=== PATIENT | female | born 1970 | race Caucasian/White ===

== ENCOUNTER → 2016-08-20 | Outpatient (CLI) | payer BC ==
[~2016-08-20] MED LIST: FLUT250M9; METH18TA5; ZYRTEC; [UNRECOGNIZED DRUG - OTHER]
== END | disposition home or self-care (01) ==
LOC: Rad HDHVI 14:04
PROVIDERS: ATTEND Internal Medicine Cardiovascular Disease
DX: I34.2 Nonrheumatic mitral (valve) stenosis (principal)
CPT/HCPCS: 93306

== ENCOUNTER → 2016-08-24 | Outpatient (CLI) | payer BC ==
[2016-08-24 10:15] VITALS: BP 138/90
[2016-08-24 10:45] VITALS: BP 125/84
== END | disposition home or self-care (01) ==
LOC: Rad HDHVI 09:51
PROVIDERS: ATTEND Internal Medicine Cardiovascular Disease
DX: I34.2 Nonrheumatic mitral (valve) stenosis (principal); Z87.828 Personal history of other (healed) physical injury and trauma; J45.909 Unspecified asthma, uncomplicated; M25.519 Pain in unspecified shoulder; M48.02 Spinal stenosis, cervical region
CPT/HCPCS: 70496; 70498; G0463

== ENCOUNTER 2017-08-01 08:09 | Emergency (ER) | payer BC ==
[~2017-08-01] VITALS: Ht 172.7 cm; Wt 86.2 kg
[2017-08-01 08:47] VITALS: BP 130/84
== END 2017-08-01 12:42 | disposition left against medical advice (07) ==
LOC: ER 08:09
DX: K46.9 Unspecified abdominal hernia without obstruction or gangrene (principal); Z53.21 Procedure and treatment not carried out due to patient leaving prior to being seen by health care provider

== ENCOUNTER 2018-01-03 07:14 | Inpatient (IN) | payer BC ==
[~2018-01-03] VITALS: Ht 175.3 cm; Wt 88.6 kg
[2018-01-03 07:56] LABS: Basophils # (auto) 0.1 uL; Basophils % (auto) 1.2 % (0.0-2.0); Eosinophils # (auto) 0.1 uL; Eosinophils % (auto) 2.3 % (0.0-7.0); Hematocrit 42.3 % (36.0-46.0); Hemoglobin 14.6 g/dL (12.2-16.2); Lymphocytes # (auto) 1.4 uL; Lymphocytes % (auto) 21.7 % (10.0-50.0); Mean Corpuscular Hemoglobin 32.6 pg (28.0-32.0); Mean Corpuscular Hgb Conc. 34.4 g/dL (32.0-36.0); Mean Corpuscular Volume 94.7 fL (80.0-100.0); Monocytes # (auto) 0.5 uL; Monocytes % (auto) 7.4 % (0.0-12.0); Neutrophils # (auto) 4.2 uL; Neutrophils % (auto) 67.4 % (37.0-80.0); Platelet Count (auto) 354 10^3/uL (140-450); Red Blood Cells 4.47 10^6/uL (4.0-5.20); Red Cell Distribution Width 13.7 % (11.8-14.3); White Blood Cell 6.3 10^3/uL (4.4-10.8)
[2018-01-03 08:15] LABS: Alanine Aminotransferase 21 U/L (13-56); Anion Gap 9 (5-15); Aspartate Aminotransferase 16 U/L (15-37); BUN/Creatinine Ratio 13.3; Blood Urea Nitrogen 11 mg/dL (7-18); Calcium 9.2 mg/dL (8.5-10.1); Carbon Dioxide 25 mmol/L (21-32); Chloride 104 mmol/L (98-107); GFR African American 95 mL/min; GFR Non-African American 78 mL/min; Glucose 109 mg/dL (74-106); Potassium 4.1 mmol/L (3.5-5.1); Sodium 138 mmol/L (136-145)
[2018-01-03 08:32] LABS: Alkaline Phosphatase 48 U/L (45-117); Bilirubin, Total 0.5 mg/dL (0.2-1.0); Total Protein 7.9 g/dL (6.4-8.2)
[2018-01-03] MEDS ORDERED: ACETAMINOPHEN 325 MG TAB PO ONE (09:30)
[2018-01-03] MEDS: SODIUM CHLORIDE 0.9% 1,000 ML IV SCH (10:28)
[2018-01-03] MEDS ORDERED: MORPHINE SULFATE 4 MG/ML SYR/VIAL IV PRN ×2 (10:30)
[2018-01-03] MEDS ORDERED: HYDROcodone-ACET 5/325MG TAB PO PRN (10:30)
[2018-01-03] MEDS ORDERED: TEMAZEPAM 15 MG CAP PO PRN (10:30)
[2018-01-03] MEDS ORDERED: NITROGLYCERIN 0.4 MG SL TAB SL PRN (10:30)
[2018-01-03] MEDS ORDERED: DOCUSATE SOD 100 MG CAP PO PRN (10:30)
[2018-01-03] MEDS ORDERED: ACETAMINOPHEN 325 MG TAB PO PRN (10:30)
[2018-01-03] MEDS ORDERED: cefTRIAXone 1GM/10ml IVPUSH 10 ML IV ONE (10:30)
[2018-01-03] MEDS ORDERED: ONDANSETRON HCL 4 MG/2 ML VIAL IV PRN (10:30)
[2018-01-03 11:04] LABS: INR 0.92 (0.9-1.15); Prothrombin Time 9.9 sec (9.27-12.13)
[2018-01-03] MEDS: metroNIDAZOLE 500MG/100ML 100 ML IV SCH ×2 (14:57→21:17)
[2018-01-03 15:38] LABS: Urine Pregnacy Test Negative (Negative)
[2018-01-03 15:50] LABS: Alcohol, Urine < 3.0 mg/dL (0-5); Amphetamine Screen, Urine NEGATIVE (NEGATIVE); Barbiturate Scree,Urine NEGATIVE (NEGATIVE); Benzodiazephine Screen, Urine NEGATIVE (NEGATIVE); Cannabinoid Screen, Urine NEGATIVE (NEGATIVE); Cocaine Screen, Urine NEGATIVE (NEGATIVE); Opiate Scree,Urine NEGATIVE (NEGATIVE); Phencyclidine Screen, Urine NEGATIVE (NEGATIVE)
[2018-01-03 16:00] LABS: Urine Bacteria MOD /hpf (None Seen); Urine Blood Negative /uL (Negative); Urine WBC 4 /hpf (0 - 5)
[2018-01-03] MEDS: ASCORBIC ACID 500 MG TAB PO SCH (21:26)
[2018-01-03] MEDS: FAMOTIDINE 20 MG TAB PO SCH (21:26)
[2018-01-03 22:00] VITALS: BP 119/63
[2018-01-04] VITALS (7 sets, daily range): BP systolic 110–124; BP diastolic 54–76
[2018-01-04] MEDS: ALBUTEROL SULF 2.5 MG/0.5ML(0.5%) NEB SOLN NEB SCH ×4 (01:23→18:20)
[2018-01-04] MEDS: SODIUM CHLORIDE 0.9% 1,000 ML IV SCH ×2 (03:08→23:20)
[2018-01-04] MEDS ORDERED: ADVAIR INH PRN (05:30)
[2018-01-04] MEDS: metroNIDAZOLE 500MG/100ML 100 ML IV SCH ×3 (05:36→20:55)
[2018-01-04 05:56] LABS: Basophils # (auto) 0 uL; Basophils % (auto) 0.8 % (0.0-2.0); Eosinophils # (auto) 0.2 uL; Eosinophils % (auto) 2.7 % (0.0-7.0); Hematocrit 39.6 % (36.0-46.0); Hemoglobin 13.8 g/dL (12.2-16.2); Lymphocytes # (auto) 1.6 uL; Mean Corpuscular Hemoglobin 33.3 pg (28.0-32.0); Mean Corpuscular Hgb Conc. 34.9 g/dL (32.0-36.0); Mean Corpuscular Volume 95.4 fL (80.0-100.0); Monocytes # (auto) 0.5 uL; Monocytes % (auto) 9.2 % (0.0-12.0); Neutrophils # (auto) 3.5 uL; Neutrophils % (auto) 59.3 % (37.0-80.0); Nucleated Red Blood Cells % 0.1 %; Platelet Count (auto) 286 10^3/uL (140-450); Red Blood Cells 4.15 10^6/uL (4.0-5.20); Red Cell Distribution Width 13.4 % (11.8-14.3); White Blood Cell 5.9 10^3/uL (4.4-10.8)
[2018-01-04 06:09] LABS: Calcium 8.4 mg/dL (8.5-10.1)
[2018-01-04 06:16] LABS: Albumin 3.3 g/dL (3.4-5.0); BUN/Creatinine Ratio 14.8; Bilirubin, Total 0.6 mg/dL (0.2-1.0); Total Protein 6.7 g/dL (6.4-8.2)
[2018-01-04] MEDS: FAMOTIDINE 20 MG TAB PO SCH ×3 (09:49→20:59)
[2018-01-04] MEDS: ASCORBIC ACID 500 MG TAB PO SCH ×2 (09:49→20:59)
[2018-01-04] MEDS: MULTIPLE VITAMIN TAB PO SCH (09:49)
[2018-01-04] MEDS: cefTRIAXone 1GM/10ml IVPUSH 10 ML IV SCH (09:49)
[2018-01-04] MEDS: BUDESONIDE (INHALATION) 0.5 MG/2 ML NEB NEB SCH ×2 (12:19→18:20)
[2018-01-04] MEDS ORDERED: diphenhdrAMINE HCL 25 MG CAP PO ONE (22:00)
[2018-01-05] MEDS ORDERED: diphenhdrAMINE HCL 25 MG CAP PO ONE (00:30)
[2018-01-05 05:00] VITALS: BP 123/69
[2018-01-05] MEDS: BUDESONIDE (INHALATION) 0.5 MG/2 ML NEB NEB SCH ×2 (06:05→19:04)
[2018-01-05] MEDS: ALBUTEROL SULF 2.5 MG/0.5ML(0.5%) NEB SOLN NEB SCH ×4 (06:05→23:58)
[2018-01-05 06:09] LABS: Basophils # (auto) 0 uL; Basophils % (auto) 0.7 % (0.0-2.0); Eosinophils # (auto) 0.2 uL; Eosinophils % (auto) 3.1 % (0.0-7.0); Hematocrit 39.5 % (36.0-46.0); Hemoglobin 13.6 g/dL (12.2-16.2); Lymphocytes # (auto) 1.5 uL; Lymphocytes % (auto) 25.4 % (10.0-50.0); Mean Corpuscular Hemoglobin 32.8 pg (28.0-32.0); Mean Corpuscular Hgb Conc. 34.5 g/dL (32.0-36.0); Mean Corpuscular Volume 95.2 fL (80.0-100.0); Monocytes # (auto) 0.5 uL; Monocytes % (auto) 8.3 % (0.0-12.0); Neutrophils # (auto) 3.8 uL; Neutrophils % (auto) 62.5 % (37.0-80.0); Nucleated Red Blood Cells % 0.1 %; Platelet Count (auto) 307 10^3/uL (140-450); Red Blood Cells 4.15 10^6/uL (4.0-5.20); Red Cell Distribution Width 13.2 % (11.8-14.3)
[2018-01-05 06:11] LABS: Potassium 4.7 mmol/L (3.5-5.1)
[2018-01-05 06:15] LABS: Albumin 3.4 g/dL (3.4-5.0); BUN/Creatinine Ratio 19.4; Calcium 8.5 mg/dL (8.5-10.1)
[2018-01-05 06:17] LABS: Bilirubin, Total 0.4 mg/dL (0.2-1.0); Total Protein 6.9 g/dL (6.4-8.2)
[2018-01-05] MEDS: metroNIDAZOLE 500MG/100ML 100 ML IV SCH ×3 (06:32→22:24)
[2018-01-05] MEDS: SODIUM CHLORIDE 0.9% 1,000 ML IV SCH (06:35)
[2018-01-05 08:33] VITALS: BP 128/74
[2018-01-05] MEDS: ASCORBIC ACID 500 MG TAB PO SCH ×2 (11:20→22:23)
[2018-01-05] MEDS: LORATADINE 10 MG TAB PO SCH (11:20)
[2018-01-05] MEDS: MULTIPLE VITAMIN TAB PO SCH (11:20)
[2018-01-05] MEDS: cefTRIAXone 1GM/10ml IVPUSH 10 ML IV SCH (11:20)
[2018-01-05] MEDS: FAMOTIDINE 20 MG TAB PO SCH ×2 (11:20→22:23)
[2018-01-05 12:46] VITALS: BP 142/88
[2018-01-05 17:18] VITALS: BP 124/77
[2018-01-05 21:38] VITALS: BP 109/67
[2018-01-06 05:26] VITALS: BP 103/75
[2018-01-06 05:59] LABS: Basophils # (auto) 0.1 uL; Eosinophils # (auto) 0.2 uL; Hematocrit 39.1 % (36.0-46.0); Hemoglobin 13.7 g/dL (12.2-16.2); Lymphocytes # (auto) 1.5 uL; Lymphocytes % (auto) 25.3 % (10.0-50.0); Mean Corpuscular Hemoglobin 33.2 pg (28.0-32.0); Mean Corpuscular Hgb Conc. 34.9 g/dL (32.0-36.0); Mean Corpuscular Volume 95.1 fL (80.0-100.0); Monocytes # (auto) 0.5 uL; Monocytes % (auto) 8.7 % (0.0-12.0); Neutrophils # (auto) 3.7 uL; Nucleated Red Blood Cells % 0.1 %; Platelet Count (auto) 298 10^3/uL (140-450); Red Blood Cells 4.11 10^6/uL (4.0-5.20); Red Cell Distribution Width 13.3 % (11.8-14.3)
[2018-01-06] MEDS: SODIUM CHLORIDE 0.9% 1,000 ML IV SCH (06:03)
[2018-01-06] MEDS: metroNIDAZOLE 500MG/100ML 100 ML IV SCH (06:04)
[2018-01-06] MEDS: ALBUTEROL SULF 2.5 MG/0.5ML(0.5%) NEB SOLN NEB SCH ×2 (06:10→11:33)
[2018-01-06] MEDS: BUDESONIDE (INHALATION) 0.5 MG/2 ML NEB NEB SCH (06:11)
[2018-01-06 06:13] LABS: Albumin 3.4 g/dL (3.4-5.0); BUN/Creatinine Ratio 17.6; Calcium 8.6 mg/dL (8.5-10.1); Potassium 4.2 mmol/L (3.5-5.1)
[2018-01-06 06:16] LABS: Bilirubin, Total 0.4 mg/dL (0.2-1.0); Total Protein 6.7 g/dL (6.4-8.2)
[2018-01-06 08:00] VITALS: BP 114/66
[2018-01-06 09:16] VITALS: BP 114/66
[2018-01-06] MEDS: cefTRIAXone 1GM/10ml IVPUSH 10 ML IV SCH (09:32)
[2018-01-06] MEDS: LORATADINE 10 MG TAB PO SCH (09:33)
[2018-01-06] MEDS: FAMOTIDINE 20 MG TAB PO SCH (09:33)
[2018-01-06] MEDS: MULTIPLE VITAMIN TAB PO SCH (09:33)
[2018-01-06] MEDS: ASCORBIC ACID 500 MG TAB PO SCH (09:33)
[2018-01-06 11:30] VITALS: BP 114/66
[2018-01-06 13:00] VITALS: BP 118/74
== END 2018-01-06 14:42 | disposition home or self-care (01) | DRG 392 ==
LOC: ER 07:14 → TELE 07:15 → TELE-WESTW 18:34
PROVIDERS: ADMIT Internal Medicine; ATTEND Internal Medicine
DX: R10.9 Unspecified abdominal pain (principal); D73.4 Cyst of spleen; I05.2 Rheumatic mitral stenosis with insufficiency; R00.2 Palpitations; J45.909 Unspecified asthma, uncomplicated; K21.9 Gastro-esophageal reflux disease without esophagitis; N18.2 Chronic kidney disease, stage 2 (mild); K57.90 Diverticulosis of intestine, part unspecified, without perforation or abscess without bleeding; Z82.49 Family history of ischemic heart disease and other diseases of the circulatory system; Z90.710 Acquired absence of both cervix and uterus; Z83.3 Family history of diabetes mellitus; Z88.5 Allergy status to narcotic agent; Z88.0 Allergy status to penicillin; Z88.8 Allergy status to other drugs, medicaments and biological substances; Z90.49 Acquired absence of other specified parts of digestive tract
CPT/HCPCS: 36415; 74176; 76705; 80053; 80307; 81001; 81025; 83605; 84484; 85025; 85610; 87040; 87086; 93005; 93306; 94640; 96374; J3490

== ENCOUNTER 2018-10-13 16:36 | Emergency (ER) | payer BC ==
[~2018-10-13] VITALS: Ht 172.7 cm; Wt 83.9 kg
[2018-10-13 17:00] VITALS: BP 125/76
[2018-10-13] MEDS ORDERED: ALBUTEROL SULF 2.5 MG/0.5ML(0.5%) NEB SOLN NEB ONE (17:15)
[2018-10-13] MEDS ORDERED: methylPREDNISolone SOD SUCC 125 MG/2 ML VL IM ONE (17:15)
[2018-10-13] MEDS ORDERED: IPRATROPIUM BROM 0.5 MG/2.5ML INH SOL NEB ONE (17:15)
== END 2018-10-13 18:08 | disposition home or self-care (01) ==
LOC: ER 16:46
DX: J45.909 Unspecified asthma, uncomplicated (principal); Z90.710 Acquired absence of both cervix and uterus; Z90.89 Acquired absence of other organs
CPT/HCPCS: 71046; 93005; 94640; 96372; 99283; J2930; J7611; J7644

== ENCOUNTER 2019-07-04 14:31 | Inpatient (IN) | payer BC ==
[~2019-07-04] VITALS: Ht 172.7 cm; Wt 101.6 kg
[2019-07-04 17:40] LABS: Basophils # (auto) 0 uL; Basophils % (auto) 0.5 % (0.0-2.0); Eosinophils # (auto) 0.1 uL; Eosinophils % (auto) 0.6 % (0.0-7.0); Hematocrit 41.7 % (36.0-46.0); Hemoglobin 14.5 g/dL (12.2-16.2); Lymphocytes # (auto) 1.2 uL; Lymphocytes % (auto) 12.6 % (10.0-50.0); Mean Corpuscular Hgb Conc. 34.8 g/dL (32.0-36.0); Mean Corpuscular Volume 97.7 fL (80.0-100.0); Monocytes # (auto) 0.7 uL; Monocytes % (auto) 7.1 % (0.0-12.0); Neutrophils # (auto) 7.5 uL; Neutrophils % (auto) 79.2 % (37.0-80.0); Platelet Count (auto) 309 10^3/uL (140-450); Red Blood Cells 4.27 10^6/uL (4.0-5.20); Red Cell Distribution Width 12.5 % (11.8-14.3); White Blood Cell 9.5 10^3/uL (4.4-10.8)
[2019-07-04 17:55] LABS: Albumin 4.1 g/dL (3.4-5.0); Calcium 9.5 mg/dL (8.5-10.1)
[2019-07-04 18:00] LABS: Total Protein 7.8 g/dL (6.4-8.2)
[2019-07-04] MEDS ORDERED: SODIUM CHLORIDE 0.9% 1,000 ML IVB ONE (20:34)
[2019-07-04] MEDS ORDERED: ONDANSETRON HCL 4 MG/2 ML VIAL IV ONE (20:45)
[2019-07-04] MEDS ORDERED: MORPHINE SULFATE 4 MG/ML SYR/VIAL IV ONE (20:45)
[2019-07-04] MEDS ORDERED: metroNIDAZOLE 500MG/100ML 100 ML IV ONE (20:45)
[2019-07-04] MEDS ORDERED: MORPHINE SULFATE 4 MG/ML SYR/VIAL IV PRN (23:00)
[2019-07-04] MEDS ORDERED: TEMAZEPAM 15 MG CAP PO PRN (23:00)
[2019-07-04] MEDS ORDERED: ONDANSETRON HCL 4 MG/2 ML VIAL IV PRN (23:00)
[2019-07-04] MEDS ORDERED: LEVOFLOXACIN 500MG 100 ML IV ONE (23:00)
[2019-07-04] MEDS ORDERED: NALBUPHINE HCL 10 MG/1ml INJECTION IV PRN (23:45)
[2019-07-05] VITALS (7 sets, daily range): BP systolic 102–139; BP diastolic 59–71
[2019-07-05] MEDS: metroNIDAZOLE 500MG/100ML 100 ML IV SCH ×4 (00:13→21:33)
[2019-07-05] MEDS ORDERED: ALBU1.257 (00:17)
[2019-07-05] MEDS ORDERED: FLUT115A (00:19)
[2019-07-05 00:39] LABS: Urine Bacteria FEW /hpf (None Seen); Urine Blood Negative /uL (Negative); Urine Specific Gravity 1.005 (1.001-1.035); Urine WBC 2 /hpf (0 - 5)
--- NOTE | 2019-07-05 01:09 | NUR ---
MS admit from ER EDNANAM admitted to tele/MS.. Patient oriented to Julia Marshall RN primary RN, unit, room, bed, and unit policies regarding patient care and visiting hours. Patient weighed by bedscale and encouraged to call if they need something. All questions and concerns addressed, patient verbalized understanding. Bed is in lowest locked position with bed rails up x2 and call light is within reach of the patient. Placed on 2 liters nasal cannula oxygen.
[2019-07-05] MEDS: LEVOFLOXACIN 500MG 100 ML IV SCH (02:43)
[2019-07-05] MEDS ORDERED: CETI10CA PO (03:37)
[2019-07-05] MEDS ORDERED: ASPI81CH49 PO (03:39)
--- NOTE | 2019-07-05 06:04 | NUR ---
IV removal IV DC'd with clean sterile technique, catheter fully intact. Pressure dressing applied to site with coband and gauze. Patient tolerated well.
--- NOTE | 2019-07-05 06:04 | NUR ---
IV insertion IV access obtained, via clean sterile technique by inserting 22 gauge catheter at right forearm after 1 attempt. IV secured properly. No trauma to site. Patient tolerated well.
--- NOTE | 2019-07-05 06:30 | NUR ---
CALLED PHARMACY: CALLED PHARMACY REGARDING NUBAIN MEDICATION FOR PAIN. PHARMACY STATED THAT IT WONT BE TILL WITHIN THE HOUR THEY WILL BE ABLE TO BRING UP MEDICATION. WILL NOTIFY DAY SHIFT NURSE.
--- NOTE | 2019-07-05 07:11 | NUR ---
Opening Shift Note Assumed care of patient, awake and alert. No S/S of distress/SOB or pain. Instructed on POC and to call for assist PRN, will continue to monitor for changes Q1hr and PRN. Bed set in lowest locked position with side rails up x 2 for safety.
[2019-07-05 07:33] LABS: Basophils # (auto) 0 uL; Basophils % (auto) 0.6 % (0.0-2.0); Eosinophils # (auto) 0.1 uL; Eosinophils % (auto) 1.2 % (0.0-7.0); Hematocrit 39.9 % (36.0-46.0); Hemoglobin 13.6 g/dL (12.2-16.2); Lymphocytes # (auto) 1.5 uL; Lymphocytes % (auto) 21.9 % (10.0-50.0); Mean Corpuscular Hemoglobin 33.9 pg (28.0-32.0); Mean Corpuscular Hgb Conc. 34.2 g/dL (32.0-36.0); Mean Corpuscular Volume 99.3 fL (80.0-100.0); Monocytes # (auto) 0.7 uL; Monocytes % (auto) 9.9 % (0.0-12.0); Neutrophils # (auto) 4.5 uL; Neutrophils % (auto) 66.4 % (37.0-80.0); Nucleated Red Blood Cells % 0.1 %; Platelet Count (auto) 268 10^3/uL (140-450); Red Blood Cells 4.02 10^6/uL (4.0-5.20); Red Cell Distribution Width 12.6 % (11.8-14.3); White Blood Cell 6.7 10^3/uL (4.4-10.8)
[2019-07-05 07:46] LABS: Calcium 8.8 mg/dL (8.5-10.1); Potassium 4.2 mmol/L (3.5-5.1)
[2019-07-05 07:48] LABS: BUN/Creatinine Ratio 9.7
--- NOTE | 2019-07-05 10:50 | NUR ---
MD at bedside Dr. Khadijah Neal, updated pt on POC. All questions answered.
[2019-07-05] MEDS: FAMOTIDINE 20 MG TAB PO SCH ×2 (10:55→21:33)
[2019-07-05] MEDS: ACETAMINOPHEN 325 MG TAB PO PRN ×2 (11:00→19:13)
[2019-07-05] MEDS ORDERED: KETOROLAC TROMETH 30 MG/ML 1ML VIAL IV ONE (16:00)
--- NOTE | 2019-07-05 16:00 | NUR ---
MD at bedside Dr. Lyon, updated pt on POC.
[2019-07-05] MEDS: SODIUM CHLORIDE 0.9% 1,000 ML IV SCH (18:45)
[2019-07-05] MEDS: LACTULOSE 20Gm/30ML SOLN PO PRN (18:55)
--- NOTE | 2019-07-05 19:16 | NUR ---
Endorsed care to NOC RN.
--- NOTE | 2019-07-05 19:30 | NUR ---
Opening Shift Note Report received from day shift RN. Assumed care of patient. Patient awake and A&Ox4. No S/S of distress/SOB noted. Patient complains of tolerable abdominal pain, 3/10 on a numerical scale. Will medicate patient as ordered. Bed locked in the lowest position with the side rails up x2 and the call light left within reach. Instructed on POC and to call for assist PRN, will continue to monitor for changes Q1hr and PRN.
[2019-07-06] MEDS: LEVOFLOXACIN 500MG 100 ML IV SCH (00:57)
[2019-07-06] MEDS: KETOROLAC TROMETH 30 MG/ML 1ML VIAL IV PRN ×3 (02:01→16:56)
[2019-07-06] MEDS: ALBUTEROL SULF 2.5 MG/0.5ML(0.5%) NEB SOLN NEB PRN ×2 (02:38→22:05)
[2019-07-06 03:53] VITALS: BP 101/61
[2019-07-06] MEDS: metroNIDAZOLE 500MG/100ML 100 ML IV SCH ×3 (05:15→21:37)
--- NOTE | 2019-07-06 07:17 | NUR ---
Opening Shift Note Assumed care of patient, awake and alert. No S/S of distress/SOB. Instructed on POC and to call for assist PRN, will continue to monitor for changes Q1hr and PRN. Bed set in lowest locked position for safety and call light is within reach.
[2019-07-06 08:00] VITALS: BP 111/69
[2019-07-06] MEDS: LACTULOSE 20Gm/30ML SOLN PO PRN ×3 (08:02→21:38)
[2019-07-06] MEDS: FAMOTIDINE 20 MG TAB PO SCH ×2 (10:03→21:38)
[2019-07-06] MEDS: SODIUM CHLORIDE 0.9% 1,000 ML IV SCH (10:40)
[2019-07-06 12:00] VITALS: BP 125/73
[2019-07-06 16:18] VITALS: BP 125/73
[2019-07-06 16:48] VITALS: BP 125/76
--- NOTE | 2019-07-06 19:35 | NUR ---
Opening Shift Note Report received from day shift RN. Assumed care of patient. Patient awake and A&Ox4. No S/S of distress/SOB noted. Patient complains of tolerable abdominal pain, 6/10 on a numerical scale. Will medicate patient as ordered. Bed locked in the lowest position with the side rails up x2 and the call light left within reach. Instructed on POC and to call for assist PRN, will continue to monitor for changes Q1hr and PRN.
[2019-07-06 22:00] VITALS: BP 120/84
[2019-07-07] MEDS: LEVOFLOXACIN 500MG 100 ML IV SCH (00:11)
[2019-07-07] MEDS: SODIUM CHLORIDE 0.9% 1,000 ML IV SCH ×2 (02:52→20:00)
[2019-07-07 05:00] VITALS: BP 108/72
[2019-07-07] MEDS: metroNIDAZOLE 500MG/100ML 100 ML IV SCH ×3 (05:48→22:18)
--- NOTE | 2019-07-07 07:40 | NUR ---
Opening Note Received report from material handler 2nd shift RN. Patient is awake, alert and oriented X4. No signs or symptoms of distress noted at this time. Patient denies pain at this time. Reviewed plan of care with patient, patient verbalized understanding. Bed in low and locked position, call light within reach. Will continue to monitor Q1 hour and PRN.
[2019-07-07 09:00] VITALS: BP 124/79
--- NOTE | 2019-07-07 09:00 | NUR ---
Respiratory note: NO PRN BREATHING TX NEEDED AT THIS TIME. WILL CONTINUE TO MONITOR PATIENT.
[2019-07-07] MEDS: FAMOTIDINE 20 MG TAB PO SCH ×2 (09:30→22:18)
--- NOTE | 2019-07-07 11:34 | NUR ---
Dr. Ha at bedside Discussing plan of care with patient. Will continue to monitor Q1 hour and PRN.
[2019-07-07 13:00] VITALS: BP 142/83
[2019-07-07] MEDS ORDERED: diphenhdrAMINE HCL 25 MG CAP PO PRN (14:15)
[2019-07-07 17:00] VITALS: BP 126/69
--- NOTE | 2019-07-07 19:25 | NUR ---
Closing Note Report given to overnight cashier RN. No signs or symptoms of distress noted at this time.
--- NOTE | 2019-07-07 19:56 | NUR ---
RT NOTE PRN ASSESSMENT DONE PRN NOT INDICATED AT THIS TIME. NO RESP DISTRESS NOTED.
--- NOTE | 2019-07-07 20:00 | NUR ---
Opening Shift Note Assumed care of patient, awake and alert. No S/S of distress/SOB or pain. Instructed on POC and to call for assist PRN, will continue to monitor for changes Q1hr and PRN. Family at bedside. Bed in low position and call light in reach.
[2019-07-07 22:00] VITALS: BP 124/79
[2019-07-08] MEDS: LEVOFLOXACIN 500MG 100 ML IV SCH (00:28)
--- NOTE | 2019-07-08 03:00 | NUR ---
Patient complained of abdominal gas. New order obtained from for [facility].
[2019-07-08] MEDS ORDERED: SIMETHICONE 80 MG CHEWABLE TABLET PO PRN (03:30)
[2019-07-08 05:00] VITALS: BP 125/74
[2019-07-08 05:56] LABS: Eosinophils # (auto) 0.2 uL; Eosinophils % (auto) 2.8 % (0.0-7.0); Hemoglobin 12.4 g/dL (12.2-16.2); Monocytes # (auto) 0.6 uL; Neutrophils # (auto) 3.6 uL; Red Cell Distribution Width 12.4 % (11.8-14.3)
[2019-07-08 06:05] LABS: Basophils # (auto) 0 uL; Basophils % (auto) 0.8 % (0.0-2.0); Hematocrit 35.4 % (36.0-46.0); Lymphocytes % (auto) 19.1 % (10.0-50.0); Mean Corpuscular Hemoglobin 34.3 pg (28.0-32.0); Mean Corpuscular Hgb Conc. 35.1 g/dL (32.0-36.0); Mean Corpuscular Volume 97.8 fL (80.0-100.0); Monocytes % (auto) 10.8 % (0.0-12.0); Neutrophils % (auto) 66.5 % (37.0-80.0); Platelet Count (auto) 249 10^3/uL (140-450); Red Blood Cells 3.62 10^6/uL (4.0-5.20); White Blood Cell 5.5 10^3/uL (4.4-10.8)
[2019-07-08 06:10] LABS: BUN/Creatinine Ratio 7.3; Calcium 8.3 mg/dL (8.5-10.1)
[2019-07-08] MEDS: metroNIDAZOLE 500MG/100ML 100 ML IV SCH (06:14)
[2019-07-08 08:53] VITALS: BP 122/81
[2019-07-08] MEDS: FAMOTIDINE 20 MG TAB PO SCH (09:51)
--- NOTE | 2019-07-08 12:41 | NUR ---
Respiratory note: PT ASSESSED FOR PRN MED NEB TX, NO TX DESIRED NOR INDICATED. NO DISTRESS NOTED, DENIES SOB. PT AND RN AWARE TO HAVE RT PAGED IF NEEDED. HR 63 RR 16 SPO2 97% ON RA, BREATH SOUNDS ARE CLEAR/DIMINISHED T/O.
[2019-07-08 12:48] VITALS: BP 136/83
--- NOTE | 2019-07-08 14:50 | NUR ---
DISCHARGE NOTE Discharge instructions given as ordered. Encourage to follow up with PMD as instructed. All questions and concerns addressed. Patient verbalized understanding. Medication reconciliation form completed and copy given to patient. IV removed with catheter intact, pressure dressing applied. Patient taken to vehicle via wheelchair with all personal belongings, accompanied by staff and family member. No distress noted at time of departure.
== END 2019-07-08 14:30 | disposition home or self-care (01) | DRG 392 ==
LOC: ER 14:31 → OVERFLOW 14:32 → WEST WING 23:45
PROVIDERS: ADMIT Nurse Practitioner; ATTEND Internal Medicine
DX: K57.32 Diverticulitis of large intestine without perforation or abscess without bleeding (principal); E66.9 Obesity, unspecified; E78.5 Hyperlipidemia, unspecified; J45.909 Unspecified asthma, uncomplicated; K58.9 Irritable bowel syndrome, unspecified; K59.00 Constipation, unspecified; Z80.0 Family history of malignant neoplasm of digestive organs; Z87.410 Personal history of cervical dysplasia; Z90.710 Acquired absence of both cervix and uterus; Z90.49 Acquired absence of other specified parts of digestive tract; Z88.0 Allergy status to penicillin; Z88.2 Allergy status to sulfonamides; Z88.8 Allergy status to other drugs, medicaments and biological substances; Z88.6 Allergy status to analgesic agent; Z91.040 Latex allergy status; Z68.34 Body mass index [BMI] 34.0-34.9, adult; Z79.899 Other long term (current) drug therapy
CPT/HCPCS: 36415; 74176; 80048; 80053; 81001; 83036; 83690; 85025; 94640; G0378; J1885; J1956; J2405; J3490

== ENCOUNTER 2020-04-06 20:32 | Emergency (ER) | payer BC ==
[~2020-04-06 20:32] MED LIST changes: +ALBU1.257; +ASPI81CH49 PO; +CETI10CA PO; +FLUT115A; -[UNRECOGNIZED DRUG - OTHER]
== END 2020-04-06 20:54 | disposition left against medical advice (07) ==
LOC: ER 20:32
DX: R10.9 Unspecified abdominal pain (principal); R11.0 Nausea; Z53.21 Procedure and treatment not carried out due to patient leaving prior to being seen by health care provider

== ENCOUNTER → 2020-04-07 | Emergency (ER) | payer BC ==
[~2020-04-07] VITALS: Ht 172.7 cm; Wt 90.7 kg
[2020-04-07 12:19] LABS: Basophils # (auto) 0 10 ^3/uL (0-0.2); Basophils % (auto) 0.9 % (0.0-2.0); Eosinophils # (auto) 0.1 10 ^3/uL (0-0.8); Eosinophils % (auto) 1.5 % (0.0-7.0); Hematocrit 42.3 % (36.0-46.0); Hemoglobin 14.4 g/dL (12.2-16.2); Lymphocytes # (auto) 1.6 10 ^3/uL (0.4-5.4); Lymphocytes % (auto) 30.8 % (10.0-50.0); Mean Corpuscular Hemoglobin 33.3 pg (28.0-32.0); Mean Corpuscular Hgb Conc. 34.2 g/dL (32.0-36.0); Mean Corpuscular Volume 97.4 fL (80.0-100.0); Monocytes # (auto) 0.5 10 ^3/uL (0-1.3); Monocytes % (auto) 8.8 % (0.0-12.0); Platelet Count (auto) 276 10^3/uL (140-450); Red Blood Cells 4.34 10^6/uL (4.0-5.20); Red Cell Distribution Width 12.8 % (11.8-14.3); White Blood Cell 5.3 10^3/uL (4.4-10.8)
[2020-04-07 12:37] LABS: Potassium 3.9 mmol/L (3.5-5.1)
[2020-04-07 12:41] LABS: Urine Bacteria MOD /hpf (None Seen); Urine Blood Negative /uL (Negative); Urine Specific Gravity 1.004 (1.001-1.035); Urine WBC 1 /hpf (0 - 5)
[2020-04-07 12:48] LABS: Albumin 4.1 g/dL (3.4-5.0); BUN/Creatinine Ratio 10.6; Bilirubin, Total 0.7 mg/dL (0.2-1.0); Calcium 9.1 mg/dL (8.5-10.1); Total Protein 7.6 g/dL (6.4-8.2)
[2020-04-07 19:34] VITALS: BP 140/74
== END | disposition home or self-care (01) ==
LOC: ER 11:11
DX: K59.00 Constipation, unspecified (principal); K57.90 Diverticulosis of intestine, part unspecified, without perforation or abscess without bleeding; R11.0 Nausea; E78.5 Hyperlipidemia, unspecified; Z90.49 Acquired absence of other specified parts of digestive tract; Z90.710 Acquired absence of both cervix and uterus
CPT/HCPCS: 36415; 74176; 80053; 81001; 83690; 85025

== ENCOUNTER 2020-09-20 21:07 | Inpatient (IN) | payer BC ==
[~2020-09-20] VITALS: Ht 172.7 cm; Wt 101.2 kg
[2020-09-20 22:18] LABS: Basophils # (auto) 0 10 ^3/uL (0-0.2); Lymphocytes # (auto) 1.2 10 ^3/uL (0.4-5.4); Lymphocytes % (auto) 11.3 % (10.0-50.0); Monocytes # (auto) 0.6 10 ^3/uL (0-1.3); Nucleated Red Blood Cells % 0.1 %
[2020-09-20 22:19] LABS: Basophils % (auto) 0.3 % (0.0-2.0); Eosinophils # (auto) 0 10 ^3/uL (0-0.8); Eosinophils % (auto) 0.4 % (0.0-7.0); Hematocrit 42.2 % (36.0-46.0); Hemoglobin 14.9 g/dL (12.2-16.2); Mean Corpuscular Hemoglobin 33.7 pg (28.0-32.0); Mean Corpuscular Hgb Conc. 35.3 g/dL (32.0-36.0); Mean Corpuscular Volume 95.4 fL (80.0-100.0); Monocytes % (auto) 5.1 % (0.0-12.0); Neutrophils # (auto) 9.1 10 ^3/uL (1.6-8.6); Neutrophils % (auto) 82.9 % (37.0-80.0); Platelet Count (auto) 355 10^3/uL (140-450); Red Blood Cells 4.43 10^6/uL (4.0-5.20); Red Cell Distribution Width 12.5 % (11.8-14.3); White Blood Cell 10.9 10^3/uL (4.4-10.8)
[2020-09-20 22:33] LABS: Albumin 4.5 g/dL (3.4-5.0); Calcium 9.8 mg/dL (8.5-10.1)
[2020-09-20 22:36] LABS: BUN/Creatinine Ratio 14.8; Bilirubin, Total 0.7 mg/dL (0.2-1.0); Total Protein 8.4 g/dL (6.4-8.2)
[2020-09-21] MEDS ORDERED: NITROGLYCERIN 0.4 MG SL TAB SL PRN (03:15)
[2020-09-21] MEDS ORDERED: ACETAMINOPHEN 325 MG TAB PO PRN (03:15)
[2020-09-21] MEDS ORDERED: ONDANSETRON HCL 4 MG/2 ML VIAL IV PRN (03:15)
[2020-09-21] MEDS: SODIUM CHLORIDE 0.9% 1,000 ML IV SCH ×2 (03:36→05:35)
[2020-09-21 03:57] LABS: Basophils # (auto) 0 10 ^3/uL (0-0.2); Basophils % (auto) 0.5 % (0.0-2.0); Eosinophils # (auto) 0.1 10 ^3/uL (0-0.8); Hematocrit 40.3 % (36.0-46.0); Hemoglobin 14.1 g/dL (12.2-16.2); Lymphocytes # (auto) 1.6 10 ^3/uL (0.4-5.4); Lymphocytes % (auto) 18.2 % (10.0-50.0); Mean Corpuscular Hemoglobin 33.6 pg (28.0-32.0); Mean Corpuscular Volume 95.9 fL (80.0-100.0); Monocytes # (auto) 0.6 10 ^3/uL (0-1.3); Monocytes % (auto) 6.8 % (0.0-12.0); Neutrophils # (auto) 6.4 10 ^3/uL (1.6-8.6); Neutrophils % (auto) 73.5 % (37.0-80.0); Platelet Count (auto) 319 10^3/uL (140-450); Red Blood Cells 4.21 10^6/uL (4.0-5.20); Red Cell Distribution Width 12.7 % (11.8-14.3); White Blood Cell 8.8 10^3/uL (4.4-10.8)
[2020-09-21 04:20] LABS: Albumin 4.1 g/dL (3.4-5.0); Calcium 8.9 mg/dL (8.5-10.1); Potassium 3.6 mmol/L (3.5-5.1)
[2020-09-21 04:23] LABS: BUN/Creatinine Ratio 15.7; Bilirubin, Total 0.6 mg/dL (0.2-1.0); Total Protein 7.7 g/dL (6.4-8.2)
[2020-09-21 04:51] VITALS: BP 137/69
[2020-09-21 05:44] VITALS: BP 137/69
[2020-09-21 07:54] VITALS: BP 116/69
[2020-09-21] MEDS: ENOXAPARIN SOD 40 MG/0.4 ML SYRINGE SC SCH (10:20)
[2020-09-21] MEDS: PANTOPRAZOLE 40 MG/10 ML VIAL INJ IV SCH (10:20)
[2020-09-21 10:47] LABS: Urine Bacteria NONE SEEN /hpf (None Seen); Urine Blood Negative /uL (Negative); Urine Mucus FEW (None Seen); Urine Specific Gravity 1.029 (1.001-1.035); Urine WBC 1 /hpf (0 - 5)
[2020-09-21] MEDS ORDERED: GASTROGRAFIN 120 ML SOL ONE (12:07)
[2020-09-21] MEDS: KETOROLAC TROMETH 30 MG/ML 1ML VIAL IV PRN ×2 (14:12→22:46)
[2020-09-21 16:00] VITALS: BP 124/79
[2020-09-21 22:00] VITALS: BP 129/74
[2020-09-22 05:00] VITALS: BP 126/66
[2020-09-22 07:07] LABS: Eosinophils # (auto) 0.2 10 ^3/uL (0-0.8); White Blood Cell 5.2 10^3/uL (4.4-10.8)
[2020-09-22 07:10] LABS: Basophils # (auto) 0.1 10 ^3/uL (0-0.2); Basophils % (auto) 1.1 % (0.0-2.0); Eosinophils % (auto) 3.3 % (0.0-7.0); Hematocrit 36.8 % (36.0-46.0); Hemoglobin 13.2 g/dL (12.2-16.2); Lymphocytes # (auto) 1.2 10 ^3/uL (0.4-5.4); Lymphocytes % (auto) 23.3 % (10.0-50.0); Mean Corpuscular Hemoglobin 34.7 pg (28.0-32.0); Mean Corpuscular Hgb Conc. 35.8 g/dL (32.0-36.0); Mean Corpuscular Volume 96.8 fL (80.0-100.0); Monocytes # (auto) 0.4 10 ^3/uL (0-1.3); Monocytes % (auto) 7.8 % (0.0-12.0); Neutrophils # (auto) 3.4 10 ^3/uL (1.6-8.6); Neutrophils % (auto) 64.5 % (37.0-80.0); Platelet Count (auto) 268 10^3/uL (140-450); Red Cell Distribution Width 12.7 % (11.8-14.3)
[2020-09-22 07:14] LABS: INR 1.03 (0.9-1.15)
[2020-09-22 07:21] LABS: Potassium 3.4 mmol/L (3.5-5.1)
[2020-09-22 07:24] LABS: Albumin 3.4 g/dL (3.4-5.0); BUN/Creatinine Ratio 19.4; Calcium 8.5 mg/dL (8.5-10.1)
[2020-09-22 07:27] LABS: Bilirubin, Total 0.6 mg/dL (0.2-1.0); Total Protein 6.5 g/dL (6.4-8.2)
[2020-09-22 07:54] VITALS: BP 128/77
[2020-09-22] MEDS ORDERED: diphenhdrAMINE HCL 25 MG CAP PO PRN (09:45)
[2020-09-22] MEDS: ENOXAPARIN SOD 40 MG/0.4 ML SYRINGE SC SCH (10:22)
[2020-09-22] MEDS: PANTOPRAZOLE 40 MG/10 ML VIAL INJ IV SCH (10:23)
[2020-09-22] MEDS: diphenhdrAMINE HCL 50 MG/1 ML VL IV PRN ×2 (10:32→22:04)
[2020-09-22] MEDS: SODIUM CHLORIDE 0.9% 1,000 ML IV SCH (12:06)
[2020-09-22] MEDS ORDERED: POTASSIUM CHLORIDE 20 MEQ, LIDOCAINE 1% (LOCAL ANESTH.) 2 ML in SODIUM CHL 0.9% 100 ML IV ONE (12:45)
[2020-09-22 16:00] VITALS: BP 119/65
[2020-09-22 22:00] VITALS: BP 125/73
[2020-09-23] MEDS: SODIUM CHLORIDE 0.9% 1,000 ML IV SCH ×2 (03:39→18:29)
[2020-09-23 05:00] VITALS: BP 104/54
[2020-09-23 07:27] LABS: Basophils # (auto) 0 10 ^3/uL (0-0.2); Basophils % (auto) 0.6 % (0.0-2.0); Eosinophils # (auto) 0.1 10 ^3/uL (0-0.8); Eosinophils % (auto) 2.3 % (0.0-7.0); Hemoglobin 12.9 g/dL (12.2-16.2); Lymphocytes % (auto) 16.6 % (10.0-50.0); Mean Corpuscular Hemoglobin 33.8 pg (28.0-32.0); Mean Corpuscular Hgb Conc. 34.9 g/dL (32.0-36.0); Mean Corpuscular Volume 96.9 fL (80.0-100.0); Monocytes # (auto) 0.4 10 ^3/uL (0-1.3); Monocytes % (auto) 7.5 % (0.0-12.0); Neutrophils # (auto) 4.3 10 ^3/uL (1.6-8.6); Platelet Count (auto) 263 10^3/uL (140-450); Red Blood Cells 3.82 10^6/uL (4.0-5.20); Red Cell Distribution Width 12.3 % (11.8-14.3)
[2020-09-23 07:40] LABS: Albumin 3.6 g/dL (3.4-5.0); Calcium 8.2 mg/dL (8.5-10.1); Potassium 3.7 mmol/L (3.5-5.1)
[2020-09-23 07:45] LABS: BUN/Creatinine Ratio 20.8; Bilirubin, Total 0.8 mg/dL (0.2-1.0)
[2020-09-23 08:00] VITALS: BP 112/65
[2020-09-23] MEDS: PANTOPRAZOLE 40 MG/10 ML VIAL INJ IV SCH (08:51)
[2020-09-23] MEDS: ENOXAPARIN SOD 40 MG/0.4 ML SYRINGE SC SCH (08:51)
[2020-09-23] MEDS: diphenhdrAMINE HCL 50 MG/1 ML VL IV PRN ×2 (12:22→21:35)
[2020-09-23 16:00] VITALS: BP 115/71
[2020-09-23 22:00] VITALS: BP 129/80
[2020-09-24 05:00] VITALS: BP 122/70
[2020-09-24 06:09] LABS: Basophils # (auto) 0 10 ^3/uL (0-0.2); Basophils % (auto) 0.8 % (0.0-2.0); Eosinophils # (auto) 0.2 10 ^3/uL (0-0.8); Eosinophils % (auto) 3.1 % (0.0-7.0); Hematocrit 35.3 % (36.0-46.0); Hemoglobin 12.4 g/dL (12.2-16.2); Lymphocytes # (auto) 1.2 10 ^3/uL (0.4-5.4); Lymphocytes % (auto) 22.1 % (10.0-50.0); Mean Corpuscular Hemoglobin 33.7 pg (28.0-32.0); Mean Corpuscular Hgb Conc. 35.2 g/dL (32.0-36.0); Mean Corpuscular Volume 95.6 fL (80.0-100.0); Monocytes # (auto) 0.5 10 ^3/uL (0-1.3); Monocytes % (auto) 9.2 % (0.0-12.0); Neutrophils # (auto) 3.4 10 ^3/uL (1.6-8.6); Neutrophils % (auto) 64.8 % (37.0-80.0); Nucleated Red Blood Cells % 0.1 %; Platelet Count (auto) 259 10^3/uL (140-450); Red Blood Cells 3.69 10^6/uL (4.0-5.20); Red Cell Distribution Width 12.5 % (11.8-14.3); White Blood Cell 5.2 10^3/uL (4.4-10.8)
[2020-09-24 06:34] LABS: BUN/Creatinine Ratio 9.5; Potassium 3.9 mmol/L (3.5-5.1)
[2020-09-24 08:33] VITALS: BP 114/68
[2020-09-24] MEDS: ENOXAPARIN SOD 40 MG/0.4 ML SYRINGE SC SCH (09:26)
[2020-09-24] MEDS: PANTOPRAZOLE 40 MG/10 ML VIAL INJ IV SCH (09:26)
[2020-09-24] MEDS: diphenhdrAMINE HCL 50 MG/1 ML VL IV PRN ×3 (09:27→22:50)
[2020-09-24 12:55] VITALS: BP 114/75
[2020-09-24] MEDS: SODIUM CHLORIDE 0.9% 1,000 ML IV SCH (15:12)
[2020-09-24 16:39] VITALS: BP 126/75
[2020-09-24 22:26] VITALS: BP 118/77
[2020-09-25 05:15] VITALS: BP 110/64
[2020-09-25 08:00] VITALS: BP 107/67
[2020-09-25] MEDS: PANTOPRAZOLE 40 MG/10 ML VIAL INJ IV SCH (09:52)
[2020-09-25] MEDS: SODIUM CHLORIDE 0.9% 1,000 ML IV SCH (09:53)
[2020-09-25] MEDS: ENOXAPARIN SOD 40 MG/0.4 ML SYRINGE SC SCH (09:53)
[2020-09-25] MEDS: diphenhdrAMINE HCL 50 MG/1 ML VL IV PRN (10:42)
[2020-09-25] MEDS ORDERED: LEVO500T31 PO (12:58)
== END 2020-09-25 17:50 | disposition home or self-care (01) | DRG 389 ==
LOC: ER 21:07 → TELE 09-21 03:23 → TELE-EAST 09-21 04:45
PROVIDERS: ADMIT Nurse Practitioner Family; ATTEND Internal Medicine
PROC: 0D9670Z Drainage of Stomach with Drainage Device, Via Natural or Artificial Opening (ICD-10-PCS; principal; 2020-09-21)
DX: K56.50 Intestinal adhesions [bands], unspecified as to partial versus complete obstruction (principal); R65.10 Systemic inflammatory response syndrome (SIRS) of non-infectious origin without acute organ dysfunction; E78.5 Hyperlipidemia, unspecified; J45.909 Unspecified asthma, uncomplicated; R73.9 Hyperglycemia, unspecified; D72.829 Elevated white blood cell count, unspecified; Z20.822 Contact with and (suspected) exposure to COVID-19; E87.6 Hypokalemia; Z88.5 Allergy status to narcotic agent; Z91.040 Latex allergy status; Z88.0 Allergy status to penicillin; Z88.2 Allergy status to sulfonamides; Z88.8 Allergy status to other drugs, medicaments and biological substances; Z90.710 Acquired absence of both cervix and uterus; Z90.49 Acquired absence of other specified parts of digestive tract; Z90.89 Acquired absence of other organs; Z80.9 Family history of malignant neoplasm, unspecified; Z79.899 Other long term (current) drug therapy
CPT/HCPCS: 36415; 71045; 74176; 74250; 80048; 80053; 81001; 82150; 83036; 83690; 84443; 85025; 85610; 87426; C9113; G0378; J1885; J2001

== ENCOUNTER 2021-01-27 15:57 | Emergency (ER) | payer BC ==
[~2021-01-27] VITALS: Ht 172.7 cm; Wt 72.6 kg
[~2021-01-27 15:57] MED LIST changes: +LEVO500T31 PO
[2021-01-27] MEDS ORDERED: ONDANSETRON HCL 4 MG/2 ML VIAL IV ONE (16:15)
[2021-01-27 16:39] LABS: Urine Bacteria FEW /hpf (None Seen); Urine Blood Negative /uL (Negative); Urine Specific Gravity 1.002 (1.001-1.035); Urine WBC <1 /hpf (0 - 5)
[2021-01-27 16:58] LABS: Basophils # (auto) 0.1 10 ^3/uL (0-0.2); Basophils % (auto) 0.9 % (0.0-2.0); Eosinophils # (auto) 0 10 ^3/uL (0-0.8); Eosinophils % (auto) 0.5 % (0.0-7.0); Hematocrit 39.2 % (36.0-46.0); Hemoglobin 13.6 g/dL (12.2-16.2); Lymphocytes # (auto) 1.2 10 ^3/uL (0.4-5.4); Lymphocytes % (auto) 19.3 % (10.0-50.0); Mean Corpuscular Hemoglobin 33.9 pg (28.0-32.0); Mean Corpuscular Hgb Conc. 34.8 g/dL (32.0-36.0); Mean Corpuscular Volume 97.6 fL (80.0-100.0); Monocytes # (auto) 0.5 10 ^3/uL (0-1.3); Monocytes % (auto) 8.1 % (0.0-12.0); Neutrophils # (auto) 4.5 10 ^3/uL (1.6-8.6); Neutrophils % (auto) 71.2 % (37.0-80.0); Nucleated Red Blood Cells % 0.1 %; Red Blood Cells 4.02 10^6/uL (4.0-5.20); Red Cell Distribution Width 12.8 % (11.8-14.3); White Blood Cell 6.2 10^3/uL (4.4-10.8)
[2021-01-27 17:19] LABS: Calcium 9.1 mg/dL (8.5-10.1); Potassium 4.2 mmol/L (3.5-5.1)
[2021-01-27 17:22] LABS: BUN/Creatinine Ratio 7.2; Bilirubin, Total 0.7 mg/dL (0.2-1.0); Total Protein 7.4 g/dL (6.4-8.2)
[2021-01-27 18:21] VITALS: BP 154/97
== END 2021-01-27 18:42 | disposition home or self-care (01) ==
LOC: ER 15:57
DX: K29.00 Acute gastritis without bleeding (principal); J45.909 Unspecified asthma, uncomplicated; E78.5 Hyperlipidemia, unspecified; Z90.49 Acquired absence of other specified parts of digestive tract; Z90.710 Acquired absence of both cervix and uterus; Z90.89 Acquired absence of other organs; Z79.82 Long term (current) use of aspirin; Z79.2 Long term (current) use of antibiotics; Z79.899 Other long term (current) drug therapy; Z88.0 Allergy status to penicillin; Z88.2 Allergy status to sulfonamides; Z88.8 Allergy status to other drugs, medicaments and biological substances; Z88.5 Allergy status to narcotic agent; Z91.040 Latex allergy status
CPT/HCPCS: 36415; 76705; 80053; 81001; 82150; 83690; 85025

== ENCOUNTER 2022-05-20 09:52 | Emergency (ER) | payer BC ==
[~2022-05-20] VITALS: Ht 172.7 cm; Wt 86.3 kg
[2022-05-20 10:37] LABS: Urine Bacteria FEW /hpf (None Seen); Urine Blood Negative /uL (Negative); Urine WBC <1 /hpf (0 - 5)
[2022-05-20 11:15] LABS: Basophils # (auto) 0 10 ^3/uL (0-0.2); Basophils % (auto) 0.9 % (0.0-2.0); Eosinophils # (auto) 0 10 ^3/uL (0-0.8); Eosinophils % (auto) 0.9 % (0.0-7.0); Hematocrit 40.5 % (36.0-46.0); Hemoglobin 13.7 g/dL (12.2-16.2); Lymphocytes # (auto) 1.4 10 ^3/uL (0.4-5.4); Lymphocytes % (auto) 25.9 % (10.0-50.0); Mean Corpuscular Hemoglobin 32.3 pg (28.0-32.0); Mean Corpuscular Hgb Conc. 33.9 g/dL (32.0-36.0); Mean Corpuscular Volume 95.4 fL (80.0-100.0); Monocytes # (auto) 0.4 10 ^3/uL (0-1.3); Monocytes % (auto) 7.4 % (0.0-12.0); Neutrophils # (auto) 3.4 10 ^3/uL (1.6-8.6); Neutrophils % (auto) 64.9 % (37.0-80.0); Red Blood Cells 4.25 10^6/uL (4.0-5.20); Red Cell Distribution Width 12.1 % (11.8-14.3); White Blood Cell 5.3 10^3/uL (4.4-10.8)
[2022-05-20 11:31] LABS: Albumin 4.1 g/dL (3.4-5.0); Calcium 9.4 mg/dL (8.5-10.1); Magnesium 2.1 mg/dL (1.6-2.6); Potassium 4.7 mmol/L (3.5-5.1)
[2022-05-20 11:35] LABS: Bilirubin, Total 0.7 mg/dL (0.2-1.0); Total Protein 7.4 g/dL (6.4-8.2)
[2022-05-20 14:06] VITALS: BP 135/73
== END 2022-05-20 14:08 | disposition home or self-care (01) ==
LOC: ER 09:52
DX: R10.84 Generalized abdominal pain (principal); R11.0 Nausea; J45.909 Unspecified asthma, uncomplicated; E78.5 Hyperlipidemia, unspecified; Z90.49 Acquired absence of other specified parts of digestive tract; Z90.89 Acquired absence of other organs; Z90.710 Acquired absence of both cervix and uterus; Z88.6 Allergy status to analgesic agent; Z88.0 Allergy status to penicillin; Z88.2 Allergy status to sulfonamides; Z91.040 Latex allergy status
CPT/HCPCS: 36415; 74176; 80053; 81001; 81025; 82150; 83690; 83735; 84484; 85025; 93005